=== PATIENT | female | born 1985 | race Caucasian/White ===

== ENCOUNTER 2020-09-11 23:13 | Emergency (ER) | payer OTHER ==
[~2020-09-11] VITALS: Ht 160 cm; Wt 123.8 kg
[2020-09-11 23:41] VITALS: BP 140/79
--- NOTE | 2020-09-11 23:50 | NUR ---
PATIENT TO BED 6
--- NOTE | 2020-09-11 23:52 | NUR ---
PATIENT BIB SELF FOR C/O SOB, COUGH, CONGESTION, AND WHEEZING X 3 DAYS. PATIENT DENIES V/D. PATIENT REPORTS OF FEVER AND SOME NAUSEA. BILATERAL DIMINISHED LUNG SOUNDS AND SOME ADVENTITIOUS SOUNDS THROUGHOUT LUNG FRYE. PATIENT TAKEN TYLENOL FOR MEDICATION TO HELP WITH FEVER AND THE STERNAL PAIN. ERMD MADE AWARE. PMH: DENIES ALLERGIES: MOY
--- NOTE | 2020-09-12 | NUR ---
RT AT BEDSIDE
--- NOTE | 2020-09-12 | NUR ---
Ruby londono in ED - 09/12/20 at 0652 by HAROLDO RT AT [facility] FOR [place]
--- NOTE | 2020-09-12 00:20 | NUR ---
ERMD AT BEDSIDE FOR EXAMINATION
[2020-09-12] MEDS ORDERED: ACETAMINOPHEN EXTRA STRENGTH 500 MG TAB PO ONE (00:35)
[2020-09-12] MEDS ORDERED: ALBUTEROL HFA MDI 90 MCG/ACTUATION 8 GM INH ONE (00:35)
[2020-09-12] MEDS ORDERED: KETOROLAC 30 MG/ML VIAL IM ONE (00:35)
--- NOTE | 2020-09-12 01:09 | NUR ---
ATTEMPTED EKG, PT REQUESTED FEMALE ATTENDANT
--- NOTE | 2020-09-12 01:15 | NUR ---
PATIENT STARTING TO BECOME VERY UPSET WITH NOT BEING ABLE TO RECEIVE THE BREATHING TREATMENT. ABLE TO PACIFY PATIENT WITH COMFORTING COMMUNICATION.
--- NOTE | 2020-09-12 01:25 | NUR ---
SWABBED COLLECTED AND SENT TO LAB
--- NOTE | 2020-09-12 02:15 | NUR ---
PT VERBALLY AGRESSIVE AND NON COMPLIANT WITH STAFF, USING PROFANITY AND AURGUMENTIVE AND UNCOOPERATIVE. PT REFUSED MEDICATIONS AND DIAGNOSTICS. PT VSS. PT SATURATION AT 98 PERCENT ON RA. RT WAS AT BEDSIDE GIVING BREATHING TREATMENT. NO SIGN OF DISTRESS NOTED. JENNIFER WAS AWARE.
[2020-09-12 02:20] VITALS: BP 140/79
[2020-09-12] MEDS ORDERED: predniSONE 20 MG TAB PO ONE (02:20)
--- NOTE | 2020-09-12 02:20 | NUR ---
PATIENT ELOPED FROM FACILITY. DISCHARGE INSTRUCTIONS NOT GIVEN TO PATIENT. DR. BRIONES NOTIFIED.
== END 2020-09-12 02:20 | disposition left against medical advice (07) ==
LOC: MED 23:13
DX: J40 Bronchitis, not specified as acute or chronic (principal); Z20.822 Contact with and (suspected) exposure to COVID-19; F17.200 Nicotine dependence, unspecified, uncomplicated
CPT/HCPCS: 71045; 87426; 87804; 94664; 96372; 99283; J1885